=== PATIENT | female | born 1990 | race Caucasian/White ===

== ENCOUNTER 2020-07-30 14:52 | Day surgery (SDC) | payer OTHER ==
[2020-07-30 15:50] VITALS: BMI 31.6
[2020-07-30] MEDS ORDERED: hydrALAZINE 20 MG/ML VIAL SLOW IVP PRN (16:51)
[2020-07-30 18:10] LABS: Amnisure Test No Membranes Rupture (No Rupture)
[2020-07-31 01:25] LABS: SARS-CoV-2 PCR by NAA Not Detected (NotDetected)
== END 2020-07-30 19:03 | disposition home or self-care (01) ==
LOC: CSHLD/OP 14:52
PROVIDERS: ATTEND Obstetrics & Gynecology
DX: O98.813 Other maternal infectious and parasitic diseases complicating pregnancy, third trimester (principal); B37.3 Candidiasis of vulva and vagina; O99.891 Other specified diseases and conditions complicating pregnancy; R19.7 Diarrhea, unspecified; R11.0 Nausea; O47.1 False labor at or after 37 completed weeks of gestation; O99.343 Other mental disorders complicating pregnancy, third trimester; F31.9 Bipolar disorder, unspecified; O99.013 Anemia complicating pregnancy, third trimester; D64.9 Anemia, unspecified; O99.333 Smoking (tobacco) complicating pregnancy, third trimester; F17.210 Nicotine dependence, cigarettes, uncomplicated; Z3A.37 37 weeks gestation of pregnancy; Z79.899 Other long term (current) drug therapy; Z88.0 Allergy status to penicillin; Z20.822 Contact with and (suspected) exposure to COVID-19
CPT/HCPCS: 84112; 87480; 87510; 87635; 87660; 99285; U0003; U0005

== ENCOUNTER 2020-08-08 08:57 | Outpatient (CLI) | payer OTHER ==
[2020-08-08 17:43] LABS: SARS-CoV-2 PCR by NAA Not Detected (NotDetected)
== END 2020-08-08 08:58 | disposition home or self-care (01) ==
LOC: CSHLAB 08:57
PROVIDERS: ATTEND Family Medicine
DX: Z20.822 Contact with and (suspected) exposure to COVID-19 (principal)
CPT/HCPCS: 87635; U0003; U0005

== ENCOUNTER 2020-08-11 18:55 | Inpatient (IN) | payer OTHER ==
[~2020-08-11 18:55] MED LIST: Bupivacaine 0.25% HCL 30 ML VIAL ONE; Lidocaine 2% 10 ML INJ ONE
[2020-08-11] MEDS: Lactated Ringer's 1,000 ML IV SCH (19:45)
[2020-08-11] MEDS ORDERED: Lidocaine 1% (PF) 30 ML VIAL SC PRN (20:25)
[2020-08-11] MEDS ORDERED: Methylergonovine 0.2 MG/ML VIAL IM PRN (20:25)
[2020-08-11] MEDS ORDERED: Ibuprofen 800 MG TAB PO PRN (20:25)
[2020-08-11] MEDS ORDERED: Misoprostol 200 MCG TAB PR PRN (20:25)
[2020-08-11] MEDS ORDERED: hydrALAZINE 20 MG/ML VIAL SLOW IVP PRN (20:25)
[2020-08-11] MEDS ORDERED: NS w/ Oxytocin 30 units 500 ML IV PRN (20:36)
[2020-08-11] MEDS ORDERED: Calcium Carbonate 500 MG ChewTAB PO PRN (21:09)
[2020-08-11] MEDS ORDERED: Misoprostol 100 MCG TAB VAG SCH (21:15)
[2020-08-11 21:36] VITALS: BMI 31.6
[2020-08-11] MEDS ORDERED: Acetaminophen 325 MG TAB PO SCH (21:45)
[2020-08-12] MEDS: Misoprostol 100 MCG TAB VAG SCH ×3 (03:28→22:49)
[2020-08-12 03:43] LABS: Hep B Surf Ag NonReactive S/CO (NonReactive); Syphilis Antibody Nonreactive (Nonreactive); Syphilis Antibody Index 0.01 S/CO (<1.00 Non-Reactive)
[2020-08-12] MEDS: Lactated Ringer's 1,000 ML IV SCH ×3 (05:25→22:49)
[2020-08-12 08:48] LABS: Hemoglobin 10.2 g/dL (12.0-15.5); Mean Corpuscular HGB CONC 33.1 g/dL (32.0-36.0); Mean Corpuscular Hemoglobin 30.6 pg (27.0-33.0); Mean Corpuscular Volume 92.5 fl (81.6-98.3); Mean Platelet Volume 9.7 fl (7.4-10.4); Platelet Count 262 10x3/uL (150-450); RBC Distribution Width 13.2 % (11.5-14.5); Red Blood Cell (RBC) Count 3.33 10x6/uL (3.90-5.03); White Blood Cell (WBC) Count 8.6 10x3/uL (3.5-10.5)
[2020-08-12] MEDS ORDERED: Prenatal Vitamin 1 TAB PO SCH (09:00)
[2020-08-12] MEDS ORDERED: Fentanyl 4 mcg/Bup 0.1% Cadd 100 ML ONE ×2 (09:01→17:00)
[2020-08-12] MEDS ORDERED: Promethazine HCl 25 MG/ML VIAL IM PRN (13:13)
[2020-08-12] MEDS ORDERED: Naloxone HCl 0.4 mg/ml Vial IVP PRN ×2 (13:13)
[2020-08-12] MEDS ORDERED: diphenhydrAMINE 50 MG/ML VIAL IVP PRN (13:13)
[2020-08-12] MEDS ORDERED: Acetaminophen 325 MG TAB PO PRN (13:13)
[2020-08-12] MEDS ORDERED: Ondansetron PF 4 MG/2 ML Vial IVP PRN ×2 (13:13→22:45)
[2020-08-12] MEDS ORDERED: Lactated Ringer's 500 ML IV PRN (13:13)
[2020-08-12] MEDS ORDERED: Communication Order-Pharmacy FS SCH (13:15)
[2020-08-12] MEDS ORDERED: Fentanyl 4 mcg/Bupivacaine 0.1% Cassette 100 ML EPIDURAL SCH (13:15)
[2020-08-12] MEDS ORDERED: NS w/ Oxytocin 30 units 500 ML IVPB SCH (14:00)
[2020-08-12] MEDS ORDERED: Hydrocerin (Eucerin) Cream 120 gm Jar TOP PRN (14:04)
[2020-08-12] MEDS ORDERED: ePHEDrine Sulfate 50 MG/10 ML VIAL SLOW IVP PRN (14:05)
[2020-08-12] MEDS ORDERED: Preparation H Ointment 28 GM TUBE PR PRN (22:45)
[2020-08-12] MEDS ORDERED: Benzocaine-Menthol 82.5 ML CAN TOP PRN (22:45)
[2020-08-12] MEDS ORDERED: Milk Of Magnesia 30 ML UDCUP PO PRN (22:45)
[2020-08-12] MEDS ORDERED: Methylergonovine 0.2 MG/ML VIAL IM PRN (22:45)
[2020-08-12] MEDS ORDERED: Lanolin Ointment 7 GM TUBE TOP PRN (22:45)
[2020-08-12] MEDS ORDERED: hydrALAZINE 20 MG/ML VIAL SLOW IVP PRN (22:45)
[2020-08-12] MEDS ORDERED: Misoprostol 200 MCG TAB VAG PRN (22:45)
[2020-08-12] MEDS ORDERED: Bisacodyl 10 MG SUPP PR PRN (22:45)
[2020-08-12] MEDS ORDERED: Adacel (T-DAP) 0.5 ML SYRINGE IM ONE (22:45)
[2020-08-12] MEDS: Aripiprazole 10 MG TAB PO SCH (22:47)
[2020-08-12] MEDS ORDERED: Docusate Calcium (SURFAK) 240 MG CAP PO SCH (23:00)
[2020-08-12] MEDS ORDERED: NS w/ Oxytocin 30 units 500 ML IV SCH (23:00)
[2020-08-12] MEDS: Ibuprofen 800 MG TAB PO SCH (23:31)
[2020-08-13] MEDS: Ibuprofen 800 MG TAB PO SCH ×2 (08:08→16:30)
[2020-08-13] MEDS: Ferrous Sulfate 325 MG TAB PO SCH ×2 (08:42→16:12)
[2020-08-13] MEDS: Aripiprazole 10 MG TAB PO SCH (08:43)
[2020-08-13] MEDS ORDERED: Docusate Calcium (SURFAK) 240 MG CAP PO SCH (09:00)
[2020-08-13] MEDS ORDERED: Prenatal Vitamin 1 TAB PO SCH (09:00)
[2020-08-13 20:14] VITALS: BP 109/67; TEMP 98.3
== END 2020-08-13 20:50 | disposition home or self-care (01) | DRG 807 ==
LOC: CSHLD 18:55 → CSHPP 08-13 10:48
PROVIDERS: ADMIT Family Medicine; ATTEND Family Medicine
PROC: 10E0XZZ Delivery of Products of Conception, External Approach (ICD-10-PCS; principal; 2020-08-12)
PROC: 10907ZC Drainage of Amniotic Fluid, Therapeutic from Products of Conception, Via Natural or Artificial Opening (ICD-10-PCS; 2020-08-12)
PROC: 3E0P7VZ Introduction of Hormone into Female Reproductive, Via Natural or Artificial Opening (ICD-10-PCS; 2020-08-12)
DX: O99.02 Anemia complicating childbirth (principal); Z37.0 Single live birth; D64.9 Anemia, unspecified; Z3A.39 39 weeks gestation of pregnancy; O99.334 Smoking (tobacco) complicating childbirth; F17.210 Nicotine dependence, cigarettes, uncomplicated; O99.344 Other mental disorders complicating childbirth; F25.0 Schizoaffective disorder, bipolar type; Z20.822 Contact with and (suspected) exposure to COVID-19
CPT/HCPCS: 51702; 86850; 86900; 86901; J2590; S0020

== ENCOUNTER 2020-08-19 11:29 | Emergency (ER) | payer OTHER ==
[2020-08-19 12:42] LABS: #Eosinphils 0.1 10x3/uL (0.0-0.5); #Monocytes 0.6 10x3/uL (0.0-1.1); #Neutrophils 6.5 10x3/uL (1.5-8.4); %Basophils 0.5 % (0.0-2.0); %Eosinophils 1.2 % (0.0-6.0); %Monocytes 6.3 % (0.0-10.0); %Neutrophils 72.9 % (40.0-75.0); Hemoglobin 10.4 g/dL (12.0-15.5); Mean Corpuscular HGB CONC 32.5 g/dL (32.0-36.0); Mean Corpuscular Hemoglobin 30.5 pg (27.0-33.0); Mean Corpuscular Volume 93.8 fl (81.6-98.3); Mean Platelet Volume 9.4 fl (7.4-10.4); Platelet Count 281 10x3/uL (150-450); RBC Distribution Width 13.1 % (11.5-14.5); Red Blood Cell (RBC) Count 3.41 10x6/uL (3.90-5.03); White Blood Cell (WBC) Count 8.9 10x3/uL (3.5-10.5)
[2020-08-19 12:49] LABS: ALT (SGPT) 22 U/L (8-55); AST (SGOT) 16 U/L (5-34); Albumin 3.5 g/dL (3.5-5.0); Alkaline Phosphatase 106 U/L (40-110); Anion Gap 13 mmol/L (10-20); BUN (Urea Nitrogen) 10 mg/dL (7.0-18.7); Bilirubin, Total 0.2 mg/dL (0.2-1.2); Calc. Creatinine Clearance 0 mL/min (70-130); Calcium 8.6 mg/dL (7.8-10.44); Carbon Dioxide 24 mmol/L (22-29); Chloride 110 mmol/L (98-107); Glucose 80 mg/dL (70-105); Protein, Total 6.5 g/dL (6.0-8.3); Sodium 143 mmol/L (136-145)
== END 2020-08-19 15:05 | disposition home or self-care (01) ==
LOC: CSHERS 11:29
DX: O90.89 Other complications of the puerperium, not elsewhere classified (principal); R06.02 Shortness of breath; F17.210 Nicotine dependence, cigarettes, uncomplicated
CPT/HCPCS: 71045; 71275; 80053; 85025; 85379; 93005; 93010

== ENCOUNTER 2021-05-23 17:51 | Emergency (ER) | payer OTHER | END 2021-05-23 18:39 | disposition left against medical advice (07) | LOC: CSHERS 17:51 | DX: Z53.21 Procedure and treatment not carried out due to patient leaving prior to being seen by health care provider (principal) ==